=== PATIENT | female | born 1950 | race Caucasian/White ===

== ENCOUNTER 2016-05-31 14:38 | Outpatient (CLI) | payer OTHER | END 2016-05-31 14:39 | disposition home or self-care (01) | DX: R59.0 Localized enlarged lymph nodes (principal) ==

== ENCOUNTER 2017-07-12 09:37 | Outpatient (CLI) | payer OTHER ==
[2017-07-12 17:51] LABS: ALBUMIN 4.4 g/dL (3.2-5.5); ALBUMIN/GLOBULIN RATIO 1.6 (1.0-2.2); BILIRUBIN,TOTAL 0.7 mg/dL (0.2-1.0); CALCIUM 9.4 mg/dL (8.5-10.3); CREATININE 0.8 mg/dL (0.4-1.0); TOTAL PROTEIN 7.1 g/dL (6.7-8.2)
[2017-07-12 18:10] LABS: FREE T4 (FREE THYROXINE) 0.99 ng/dL (0.58-1.64); THYROID STIMULATING HORMONE 1.64 uIU/mL (0.34-5.60)
[2017-07-12 18:14] LABS: FERRITIN 36.3 ng/mL (11.0-306.8); TOTAL T3 1.02 ng/mL (0.87-1.78)
[2017-07-12 18:59] LABS: BASOPHILS % (AUTO) 0.6 %; EOSINOPHILS % (AUTO) 1.1 %; HGB - HEMOGLOBIN 13.5 g/dL (12.0-16.0); LYMPHOCYTES # (AUTO) 0.8 10^3/uL (1.5-3.5); LYMPHOCYTES % (AUTO) 27.2 %; MEAN CORPUSCULAR HEMOGLOBIN 29.6 pg (27.0-31.0); MEAN CORPUSCULAR HGB CONC 33.4 g/dL (32.0-36.0); MEAN CORPUSCULAR VOLUME 88.6 fL (81.0-99.0); MEAN PLATELET VOLUME 10.3 fL (7.9-10.8); MONOCYTES # (AUTO) 0.2 10^3/uL (0.0-1.0); MONOCYTES % (AUTO) 6.3 %; NEUTROPHILS % (AUTO) 64.8 %; PLT - PLATELET COUNT 163 10^3/uL (130-450); RED BLOOD COUNT 4.57 10^6/uL (4.20-5.40); RED CELL DISTRIBUTION WIDTH 13.6 % (12.0-15.0); WHITE BLOOD COUNT 3.1 x10^3/uL (4.8-10.8)
[2017-07-12 19:30] LABS: HB2 TOTAL 14.6 g/dL; HEMOGLOBIN A1C 0.49 g/dL; HEMOGLOBIN A1C % 5.2 % (4.6-6.2)
[2017-07-16 17:32] LABS: T3 REVERSE 15 ng/dL (8-25)
== END 2017-07-12 09:38 | disposition home or self-care (01) ==
LOC: LAB.F 09:37
PROVIDERS: ATTEND Family Medicine
DX: E03.9 Hypothyroidism, unspecified (principal); R53.83 Other fatigue; D64.9 Anemia, unspecified; E55.9 Vitamin D deficiency, unspecified
CPT/HCPCS: 36415; 80053; 82306; 82626; 82728; 83036; 84439; 84443; 84480; 84481; 84482; 85025

== ENCOUNTER 2017-07-18 13:43 | Outpatient (CLI) | payer MEDICARE ==
--- NOTE | 2017-07-19 10:20 | XRAY Report ---
TWO VIEW CHEST: 07/18/2017 CLINICAL INDICATION: Chest pain, worse with inspiration. COMPARISON: 05/31/2016. FINDINGS: Frontal and lateral views of the chest demonstrate a normal cardiac silhouette. The lungs demonstrate minimal biapical fibrosis. No focal infiltrate, effusion, or pneumothorax is seen. IMPRESSION: MINIMAL FIBROTIC CHANGES. NO EVIDENCE OF ACUTE CARDIOPULMONARY DISEASE. TD: 07/19/2017 10:20
== END 2017-07-18 13:44 | disposition home or self-care (01) ==
LOC: DI.S 13:43
PROVIDERS: ATTEND Family Medicine
DX: J84.10 Pulmonary fibrosis, unspecified (principal)
CPT/HCPCS: 71046

== ENCOUNTER 2019-10-01 12:06 | Outpatient (CLI) | payer MEDICARE | END 2019-10-01 12:07 | disposition home or self-care (01) | LOC: LAB.S 12:06 | PROVIDERS: ATTEND Family Medicine | DX: U07.1 COVID-19 (principal) | CPT/HCPCS: 81599 ==

== ENCOUNTER 2019-11-27 14:15 | Outpatient (CLI) | payer MEDICARE | END 2019-11-27 14:16 | disposition home or self-care (01) | LOC: COV 14:15 | PROVIDERS: ATTEND Family Medicine | DX: Z20.828 Contact with and (suspected) exposure to other viral communicable diseases (principal) ==

== ENCOUNTER 2022-04-25 09:34 | Emergency (ER) | payer MEDICARE ==
[2022-04-25 10:06] LABS: BASOPHILS % (AUTO) 0.3 %; EOSINOPHILS % (AUTO) 0.4 %; HCT - HEMATOCRIT 38.9 % (37.0-47.0); HGB - HEMOGLOBIN 12.7 g/dL (12.0-16.0); LYMPHOCYTES # (AUTO) 0.9 10^3/uL (1.5-3.5); LYMPHOCYTES % (AUTO) 9.2 %; MEAN CORPUSCULAR HEMOGLOBIN 29.3 pg (27.0-31.0); MEAN CORPUSCULAR HGB CONC 32.6 g/dL (32.0-36.0); MEAN CORPUSCULAR VOLUME 89.8 fL (81.0-99.0); MEAN PLATELET VOLUME 10.8 fL (7.9-10.8); MONOCYTES # (AUTO) 0.6 10^3/uL (0.0-1.0); MONOCYTES % (AUTO) 6.6 %; NEUTROPHILS # (AUTO) 8.1 10^3/uL (1.5-6.6); NEUTROPHILS % (AUTO) 83.2 %; PLT - PLATELET COUNT 209 10^3/uL (130-450); RED BLOOD COUNT 4.33 10^6/uL (4.20-5.40); RED CELL DISTRIBUTION WIDTH 13.4 % (12.0-15.0); WHITE BLOOD COUNT 9.8 x10^3/uL (4.8-10.8)
[2022-04-25] MEDS ORDERED: DEXAMETHASONE 10 MG/ML VIAL PO STA (10:21)
[2022-04-25] MEDS ORDERED: CHERRY SYRUP 10 ML UDC PO ONE (10:21)
[2022-04-25 10:22] LABS: ALBUMIN 3.7 g/dL (3.2-5.5); BILIRUBIN,TOTAL 1.2 mg/dL (0.2-1.0); CALCIUM 9.1 mg/dL (8.5-10.3); CREATININE 0.9 mg/dL (0.4-1.0); POTASSIUM 3.7 mmol/L (3.5-5.0); TOTAL PROTEIN 7.4 g/dL (6.7-8.2)
--- NOTE | 2022-04-25 10:22 | XRAY Report ---
PROCEDURE: Chest 2 View X-Ray INDICATIONS: Chest Pain TECHNIQUE: 2 views of the chest were acquired. COMPARISON: 07/18/2017 FINDINGS: Surgical changes and devices: None. Lungs and pleura: There is blunting of left costophrenic sulcus laterally. Left lung base opacity obs cures the left cardiac border visualization. Findings are superimposed on mild diffuse articulation. Mediastinum: Mediastinal contours are normal. Heart size is normal. Bones and chest wall: No suspicious bony abnormalities. Soft tissues appear unremarkable. IMPRESSION: 1. Possible lingular opacity and small left lateral pleural effusion. This may be infectious or atele ctasis. 2. Findings superimposed on mild chronic interstitial lung disease. Reviewed by: Fabiola Altamirano MD on 04/25/2022 9:20 AM [facility] Approved by: Fabiola Altamirano MD on 04/25/2022 9:20 AM [facility] Station ID: [id number]
--- NOTE | 2022-04-25 10:26 | ED Physician Documentation ---
PD HPI CHEST PAIN - Stated complaint Stated Complaint: CHEST/SHOULDER/ARM PX - Chief complaint Chief Complaint: Cardiac - History obtained from History obtained from: Patient, Family - History of Present Illness Timing - onset: How many days ago (4) Timing - onset during: Rest Timing - duration: Days (4) Timing - details: Gradual onset, Still present Quality: Sharp, Pain Location: Left shoulder/arm Improved by: Rest Worsened by: Inspiration Associated symptoms: Cough Similar symptoms before: Has not had sx before Recently seen: Clinic - Additional information Additional information: 72-year-old Roro Lopes is an otherwise healthy female who went into see her doctor a week ago and at the time was not ill. The following day she felt ill with aches and pains and subsequently has developed a cough and pain in her left shoulder especially if she takes a deep breath. This morning the pain in her shoulder was bad enough she called her doctor who told her to come to the emergency department for evaluation. Review of Systems Constitutional: reports: Fever, Chills Eyes: denies: Decreased vision, Photophobia Ears: denies: Loss of hearing Nose: denies: Rhinorrhea / runny nose, Congestion Throat: denies: Sore throat Cardiac: reports: Chest pain / pressure. denies: Palpitations, Pedal edema, Calf pain Respiratory: reports: Cough. denies: Dyspnea, Wheezing GI: denies: Abdominal Pain, Nausea, Vomiting, Constipation, Diarrhea : denies: Dysuria, Frequency PD PAST MEDICAL HISTORY - Past Medical History Past Medical History: Yes Cardiovascular: None Respiratory: Pneumonia Neuro: None Endocrine/Autoimmune: None GI: None SCHEDULING REPRESENTATIVE: None : None HEENT: None Psych: None Musculoskeletal: None Derm: None - Present Medications Home Medications: Ambulatory Orders Medication Instructions Recorded Confirmed Ascorbic Acid [Vitamin C] 1,000 mg PO DAILY 04/25/22 04/25/22 Calcium Carb/Mag Ox/Zinc Sulf 1 each PO DAILY 04/25/22 04/25/22 [Khe-Jpy-Svbs 334-134-5 mg Tab] Cefdinir 300 mg PO BID #20 cap 04/25/22 Cholecalciferol (Vitamin D3) 125 mcg PO DAILY 04/25/22 04/25/22 [Vitamin D3 Max] - Allergies Allergies/Adverse Reactions: Allergies Allergy/AdvReac Type Severity Reaction Status Date / Time latex Allergy Rash Verified 04/25/22 09:37 - Social History Does the pt smoke?: No Smoking Status: Never smoker - Immunizations Immunizations are current?: Yes PD ED PE NORMAL - Vitals Vital signs reviewed: Yes (Normal) - General General: Alert and oriented X 3, No acute distress, Well developed/nourished - HEENT HEENT: Atraumatic, PERRL, EOMI - Neck Neck: Supple, no meningeal sign, No bony TTP - Cardiac Cardiac: RRR, No murmur - Respiratory Respiratory: No respiratory distress, Other (Fine crackles to the mid left lung ) - Abdomen Abdomen: Soft, Non tender - Back Back: No CVA TTP, No spinal TTP - Derm Derm: Normal color, Warm and dry, No rash - Extremities Extremities: No deformity, No edema - Neuro Neuro: Alert and oriented X 3, 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, No motor deficit, No sensory deficit, Normal speech Eye Opening: Spontaneous Motor: Obeys Commands Verbal: Oriented GCS Score: 15 - Psych Psych: Normal mood, Normal affect Results - Vitals Vitals: Vital Signs - 24 hr 04/25/22 04/25/22 09:37 10:11 Temperature 37.2 C Heart Rate 88 87 Respiratory 18 24 Rate Blood Pressure 128/75 125/64 O2 Saturation 98 100 Oxygen O2 Source Room air - EKG (time done) 0947 Rate: Rate (enter#) (85) Rhythm: NSR [place]: LAD (borderline) Compare to prior EKG: Old EKG unavailable Computer interpretation: Agree with computer - Labs Labs: Laboratory Tests 04/25/22 04/25/22 04/25/22 09:52 09:52 09:52 WBC 9.8 RBC 4.33 Hgb 12.7 Hct 38.9 MCV 89.8 MCH 29.3 MCHC 32.6 RDW 13.4 Plt Count 209 MPV 10.8 Neut # (Auto) 8.1 H Lymph # (Auto) 0.9 L [place] # (Auto) 0.6 Eos # (Auto) 0.0 Baso # (Auto) 0.0 Absolute Nucleated RBC 0.00 Nucleated RBC % 0.0 D-Dimer Sodium 134 L Potassium 3.7 Chloride 98 L Carbon Dioxide 27 Anion Gap 9.0 BUN 15 Creatinine 0.9 Estimated GFR (MDRD) 62 L Glucose 116 H Calcium 9.1 Total Bilirubin 1.2 H AST 48 H ALT 44 Alkaline Phosphatase 72 Troponin I High Sens 4.5 Total Protein 7.4 Albumin 3.7 Globulin 3.7 Albumin/Globulin Ratio 1.0 Lipase 29 Nasal Adenovirus (PCR) Nasal B. parapertussis DNA (PCR) Nasal Coronavir 229E PCR Nasal Coronavir HKU1 PCR Nasal Coronavir NL63 PCR Nasal Coronavir OC43 PCR Nasal Enterovir/Rhinovir PCR Nasal Influenza B PCR Nasal Influenza A PCR Nasal Parainfluen 1 PCR Nasal Parainfluen 2 PCR Nasal Parainfluen 3 PCR Nasal Parainfluen 4 PCR Nasal RSV (PCR) Nasal B.pertussis DNA PCR Nasal C.pneumoniae (PCR) Moises Human Metapneumo PCR Nasal M.pneumoniae (PCR) Nasal SARS-CoV-2 (PCR) 04/25/22 04/25/22 09:52 10:05 WBC RBC Hgb Hct MCV MCH MCHC RDW Plt Count MPV Neut # (Auto) Lymph # (Auto) [place] # (Auto) Eos # (Auto) Baso # (Auto) Absolute Nucleated RBC Nucleated RBC % D-Dimer 279.4 H Sodium Potassium Chloride Carbon Dioxide Anion Gap BUN Creatinine Estimated GFR (MDRD) Glucose Calcium Total Bilirubin AST ALT Alkaline Phosphatase Troponin I High Sens Total Protein Albumin Globulin Albumin/Globulin Ratio Lipase Nasal Adenovirus (PCR) NOT DETECTED Nasal B. parapertussis DNA (PCR) NOT DETECTED Nasal Coronavir 229E PCR NOT DETECTED Nasal Coronavir HKU1 PCR NOT DETECTED Nasal Coronavir NL63 PCR NOT DETECTED Nasal Coronavir OC43 PCR NOT DETECTED Nasal Enterovir/Rhinovir PCR NOT DETECTED Nasal Influenza B PCR NOT DETECTED Nasal Influenza A PCR NOT DETECTED Nasal Parainfluen 1 PCR NOT DETECTED Nasal Parainfluen 2 PCR NOT DETECTED Nasal Parainfluen 3 PCR NOT DETECTED Nasal Parainfluen 4 PCR NOT DETECTED Nasal RSV (PCR) NOT DETECTED Nasal B.pertussis DNA PCR NOT DETECTED Nasal C.pneumoniae (PCR) NOT DETECTED Moises Human Metapneumo PCR NOT DETECTED Nasal M.pneumoniae (PCR) NOT DETECTED Nasal SARS-CoV-2 (PCR) NOT DETECTED - Rads (name of study) chest Radiology: Prelim report reviewed (Impression: 1. Possible lingular opacity and small left lateral pleural effusion. This may be infectious or atelectasis. Findings superimposed on chronic mild chronic interstitial lung disease.), EMP read indepedently chest CTA Radiology: Prelim report reviewed (Impression: 1. No pulmonary embolus. Consolidation in the lingula with trace effusion suggestive of pneumonia. Chronic appearing bilateral upper lobe pleural plaquing.), EMP read indepedently PD Medical Decision Making - ED course Complexity details: reviewed old records, reviewed results, re-evaluated patient, considered differential, d/w patient, d/w family ED course: 72 y/o female with prior history of pneumonia with pleuritic left shoulder pain, cough and fever appears to have an infiltrate with effusion on the left to account for symptoms. She has left sided pleuritic chest pain and an elevated d- dimer. The differential includes PE, cancer, pneumonia and of course all potential causes of chest pain. I favor pneumonia but found the elevated d-dimer a reason to perform further testing and a pulmonary angiogram is undertaken. The scan is reassuring and indicates a likely etiology of pneumonia. The patient has had a trip to see her primary care doctor after her last visit for pneumonia in 2011. She went to see the primary for a rash and she recall she had this the day after she is was seen in the emergency department. She was treated at that time with Rocephin and azithromycin. Unclear which she had a reaction to but I would be concerned about the Rocephin. I have elected to treat the patient with cefdinir as a single agent. She is going to [place] and I felt addition of doxycycline might interfere with sun exposure. Departure - Departure Disposition: 01 Home, Self Care Clinical Impression: Pneumonia Qualifiers: Pneumonia type: due to unspecified organism Laterality: left Lung location: lower lobe of lung Qualified Code(s): J18.9 - Pneumonia, unspecified organism Condition: Stable Instructions: ED Pneumonia Adult Follow-Up: Gayathri Barros MD [Primary Care Provider] - Prescriptions: Cefdinir 300 mg PO BID #20 cap Comments: Roro today looks like you have pneumonia in the left base of your lung and your CAT scan is confirmed that this looks like just pneumonia nothing else. My recommendation is to fill the prescription for the cefdinir and begin taking it today. You were given a dose of dexamethasone today and this should help with your pain in the shoulder and with your general symptoms.I have E scribed the cefdinir to [facility] in [place].
[2022-04-25] MEDS ORDERED: iohexoL-300 100 ML VIAL ONE (10:38)
[2022-04-25] MEDS ORDERED: iohexoL-300 100 ML VIAL IVP ONE (11:01)
[2022-04-25 11:13] LABS: B. PARAPERTUSSIS- RESP PCR PAN NOT DETECTED; B. PERTUSSIS- RESP PCR PANEL NOT DETECTED; C. PNEUMONIAE- RESP PCR PANEL NOT DETECTED; CORONAVIRUS 229E-RESP PCR NOT DETECTED; CORONAVIRUS HKU1-RESP PCR NOT DETECTED; CORONAVIRUS NL63-RESP PCR NOT DETECTED; CORONAVIRUS OC43-RESP PCR NOT DETECTED; HUMAN METAPNEUMOVIRUS NOT DETECTED; INFLUENZA A- RESP PCR PANEL NOT DETECTED; INFLUENZA B - RESP PCR PANEL NOT DETECTED; M. PNEUMONIAE- RESP PCR PANEL NOT DETECTED; PARAINFLUENZA VIRUS 1 NOT DETECTED; PARAINFLUENZA VIRUS 2 NOT DETECTED; PARAINFLUENZA VIRUS 3 NOT DETECTED; PARAINFLUENZA VIRUS 4 NOT DETECTED; RHINOVIRUS/ENTEROVIRUS NOT DETECTED; RSV- RESP PCR PANEL NOT DETECTED; SARS-CoV-2 -RESP PCR PANEL NOT DETECTED
--- NOTE | 2022-04-25 11:45 | CT Report ---
PROCEDURE: ANGIO CHEST W/WO INDICATIONS: L chest pain elevated d-dimer CONTRAST: 80ml omni 300 TECHNIQUE: After the administration of intravenous contrast, 2 mm axial images were acquired from the pulmonary apices to the posterior costophrenic angles during the arterial phase. In addition, 1 mm lung kernel and 5 mm soft tissue kernel reconstructions were performed. 3-dimensional coronal oblique maximum int ensity projection (MIP) reformats, 8 mm axial MIP, and 5 mm coronal and sagittal MPR reformats were t hen performed through the thorax. For radiation dose reduction, the following was used: automated exp osure control, adjustment of mA and/or kV according to patient size. COMPARISON: None. Correlation made to chest x-ray performed the same day. FINDINGS: Image quality: Excellent. Pulmonary arteries: Pulmonary arteries are normal in size, and demonstrate no intraluminal filling d efects to suggest central pulmonary embolism. Lungs and pleura: There is a consolidation with adjacent groundglass opacity involving the lower ling roe. Mild atelectatic change present at the left posterior costophrenic sulcus. Trace left pleural ef fusion. Bilateral apical and upper lobe lateral irregular pleural plaquing. Central and peripheral ai rways are patent. Mediastinum: Heart size is normal, without pericardial effusion. No mediastinal or hilar adenopathy . Thoracic aorta is normal in caliber and enhancement. Esophagus is normal in caliber, without hiat al hernia. Bones and chest wall: No suspicious bony lesions. Ribs and thoracic spine appear intact throughout. No axillary or supraclavicular adenopathy. The thyroid is normal in size and there are no incident al findings. Abdomen: Visualized upper abdominal solid organs appear normal in the early arterial phase of enhanc ement. IMPRESSION: 1. No pulmonary embolus. 2. Consolidation in the lingula with trace effusion suggestive of pneumonia. 3. Chronic appearing bilateral upper lobe pleural plaquing. Reviewed by: Fabiola Altamirano MD on 04/25/2022 10:43 AM [facility] Approved by: Fabiola Altamirano MD on 04/25/2022 10:43 AM [facility] Station ID: [id number]
[2022-04-25 11:59] VITALS: BP 104/67
== END 2022-04-25 12:06 | disposition home or self-care (01) ==
LOC: ED 09:34
DX: J18.9 Pneumonia, unspecified organism (principal); Z20.822 Contact with and (suspected) exposure to COVID-19
CPT/HCPCS: 36415; 71046; 71275; 80053; 83690; 84484; 85025; 85379; 87633; 93005; 99284; A9270; Q9967

== ENCOUNTER 2022-05-10 07:37 | Outpatient (CLI) | payer MEDICARE ==
[2022-05-10 14:16] LABS: EOSINOPHILS # (AUTO) 0.1 10^3/uL (0.0-0.7); EOSINOPHILS % (AUTO) 1.7 %; HCT - HEMATOCRIT 39.7 % (37.0-47.0); HGB - HEMOGLOBIN 12.2 g/dL (12.0-16.0); LYMPHOCYTES # (AUTO) 0.9 10^3/uL (1.5-3.5); MEAN CORPUSCULAR HEMOGLOBIN 28.6 pg (27.0-31.0); MEAN CORPUSCULAR HGB CONC 30.7 g/dL (32.0-36.0); MEAN CORPUSCULAR VOLUME 93.2 fL (81.0-99.0); MEAN PLATELET VOLUME 11.1 fL (7.9-10.8); MONOCYTES # (AUTO) 0.2 10^3/uL (0.0-1.0); MONOCYTES % (AUTO) 7.3 %; NEUTROPHILS # (AUTO) 1.8 10^3/uL (1.5-6.6); PLT - PLATELET COUNT 308 10^3/uL (130-450); RED BLOOD COUNT 4.26 10^6/uL (4.20-5.40); RED CELL DISTRIBUTION WIDTH 14.3 % (12.0-15.0)
[2022-05-10 15:55] LABS: ALBUMIN 3.6 g/dL (3.2-5.5); ALKALINE PHOSPHATASE 54 IU/L (42-121); ALT ALANINE AMINOTRANSFERASE 23 IU/L (10-60); AST ASPARTATE AMINOTRANSFERASE 26 IU/L (10-42); BILIRUBIN,TOTAL 0.8 mg/dL (0.2-1.0); BUN - BLOOD UREA NITROGEN 17 mg/dL (6-20); CALCIUM 9.9 mg/dL (8.5-10.3); CARBON DIOXIDE - CO2 30 mmol/L (21-32); CHLORIDE 102 mmol/L (101-111); CHOL/HDL RATIO 2.4 (<4.4); CHOLESTEROL 184 mg/dL; CREATININE 0.8 mg/dL (0.4-1.0); CRP HIGH SENSITIVITY 1.9 mg/L; GFR - MDRD 71 (>89); GLUCOSE 84 mg/dL (70-100); HDL CHOLESTEROL 77 mg/dL; LDL CHOLESTEROL,CALCULATED 96 mg/dL; LDL/HDL RATIO 1.2 (<4.4); POTASSIUM 4.2 mmol/L (3.5-5.0); SODIUM 139 mmol/L (135-145); THYROID STIMULATING HORMONE 1.42 uIU/mL (0.34-5.60); TOTAL PROTEIN 7.2 g/dL (6.7-8.2); TRIGLYCERIDES 57 mg/dL; VLDL CHOLESTEROL 11 mg/dL
[2022-05-10 15:57] LABS: FREE T3 2.7 pg/mL (2.5-3.9); FREE T4 (FREE THYROXINE) 0.89 ng/dL (0.58-1.64)
[2022-05-10 16:02] LABS: FERRITIN 76.4 ng/mL (11.0-306.8)
[2022-05-10 20:29] LABS: ESTIMATED AVERAGE GLUCOSE 114 mg/dL (70-100); HEMOGLOBIN A1c% 5.6 % (4.27-6.07)
[2022-05-11 06:10] LABS: VITAMIN D 25-HYDROXY 89.5 ng/mL (30.0-100.0)
== END 2022-05-10 07:38 | disposition home or self-care (01) ==
LOC: LAB.S 07:37
PROVIDERS: ATTEND Family Medicine
DX: E03.9 Hypothyroidism, unspecified (principal); E78.5 Hyperlipidemia, unspecified; R53.83 Other fatigue; R73.09 Other abnormal glucose; N95.1 Menopausal and female climacteric states; E55.9 Vitamin D deficiency, unspecified
CPT/HCPCS: 36415; 80053; 80061; 82306; 82626; 82728; 83036; 83090; 83721; 84439; 84443; 84480; 84481; 84482; 85025; 86141

== ENCOUNTER 2022-05-29 13:36 | Outpatient (CLI) | payer MEDICARE ==
--- NOTE | 2022-05-29 18:52 | DEXA Report ---
PROCEDURE: Dexa Spine and/or Hip INDICATIONS: POST MENOPAUSAL TECHNIQUE: Dual energy x-ray absorptiometry (DXA) was performed on a Plisten System. Regions measur ed are the AP Spine, femoral neck, and if needed forearm. COMPARISON: None. FINDINGS: Lumbar Spine: Bone Mineral Density 0.829 g/cm/cm,T score -2.9, osteoporosis Left Femoral Neck: Bone Mineral Density 0.622 g/cm/cm, T score -2.7, osteoporosis Left Hip: Bone Mineral Density 0.722 g/cm/cm,T score -2.4, osteopenia (T score greater or equal to -1.0: NORMAL) (T score from -1.1 to -2.4: OSTEOPENIA) (T score less than or equal to -2.5 to: OSTEOPOROSIS) Impression: Osteoporosis Patients with diagnosis of osteoporosis or osteopenia should have regular bone mineral density assess ment. For those eligible for Medicare, routine testing is allowed once every 2 years. Testing frequ ency can be increased for patients who have rapidly progressing disease or for those who are receivin g medical therapy to restore bone mass. Reviewed by: Tunde Luque MD on 05/29/2022 5:51 PM [facility] Approved by: Tunde Luque MD on 05/29/2022 5:51 PM [facility] Station ID: [id number]
== END 2022-05-29 13:37 | disposition home or self-care (01) ==
LOC: DI 13:36
PROVIDERS: ATTEND Family Medicine
DX: M81.0 Age-related osteoporosis without current pathological fracture (principal); Z78.0 Asymptomatic menopausal state

== ENCOUNTER 2022-05-29 13:37 | Outpatient (CLI) | payer MEDICARE ==
--- NOTE | 2022-05-31 12:28 | Mammography Report ---
BILATERAL DIGITAL SCREENING MAMMOGRAM 3D/2D: 05/29/2022 CLINICAL: Routine screening. Family history of breast cancer. Comparison is made to exams dated: 07/21/2020 mammogram, 06/07/2016 mammogram, and 03/03/2013 mammogram - [facility]. Both breasts are extremely dense, which lowers the sensitivity of mammography (category d />75% gland ular tissue). No significant masses, calcifications, or other findings are seen in either breast. There has been no significant interval change. IMPRESSION: NEGATIVE There is no mammographic evidence of malignancy. A 1 year screening mammogram is recommended. This exam was interpreted at Station ID: [id number]. NOTE: For mammograms, a report in lay terms will be sent to the patient. Approximately 15% of breast malignancies will not be visualized mammographically. In the management of a palpable breast mass, a negative mammogram must not discourage biopsy of a clinically suspicious lesion. Electronically Signed By: Roger Messer M.D. [facility]:05/30/2022 10:56:16 letter sent: No_Letter ACR BI-RADS Category 1: Negative [id number] PARENCHYMAL PATTERN: (VD) - The breast(s) demonstrate(s) extremely dense parenchyma, limiting the sen sitivity of mammography. BI-RADS CATEGORY: (1) - 1 RECOMMENDATION: (ANNUAL) - Recommend routine annual screening mammography. [id number] 1 year screening LATERALITY: (B)
== END 2022-05-29 13:38 | disposition home or self-care (01) ==
LOC: DI 13:37
PROVIDERS: ATTEND Family Medicine
DX: Z12.31 Encounter for screening mammogram for malignant neoplasm of breast (principal); Z80.3 Family history of malignant neoplasm of breast

== ENCOUNTER 2023-10-17 11:27 | Outpatient (CLI) | payer MEDICARE ==
--- NOTE | 2023-10-17 11:46 | XRAY Report ---
PROCEDURE: Cervical Spine 2-3V INDICATIONS: NECK PAIN TECHNIQUE: 3 view(s) of the cervical spine were acquired. COMPARISON: None. FINDINGS: Bones: No fractures or dislocations to the T1 level. The lateral masses of C1 appear intact on the odontoid view. No suspicious bony lesions. Grade 1 anterolisthesis of C7 on T1, presumably due to f acet arthrosis. Moderate disc height loss at C4-5, C5-6, C6-7. Mild disc height loss at remaining lev els. Diffuse facet arthrosis. Soft tissues: No prevertebral soft tissue swelling. Right apical scarring. IMPRESSION: Mild to moderate, multilevel degenerative disc disease and diffuse facet arthrosis. Reviewed by: Kristian Jimenes MD on 10/17/2023 10:45 AM [facility] Approved by: Kristian Jimenes MD on 10/17/2023 10:45 AM [facility] Station ID: [id number]
== END 2023-10-17 11:28 | disposition home or self-care (01) ==
LOC: DI.S 11:27
PROVIDERS: ATTEND Family Medicine
DX: M50.321 Other cervical disc degeneration at C4-C5 level (principal); M47.812 Spondylosis without myelopathy or radiculopathy, cervical region

== ENCOUNTER 2023-11-09 07:00 | Outpatient (CLI) | payer MEDICARE ==
--- NOTE | 2023-11-09 12:11 | XRAY Report ---
PROCEDURE: Chest 2V INDICATIONS: COUGH TECHNIQUE: 2 views of the chest were acquired. COMPARISON: Thoracic spine plain films that include the area of current clinical concern. FINDINGS: Surgical changes and devices: None. Lungs and pleura: No pleural effusions or pneumothorax. Lungs are abnormal with pulmonary hyperexpa nsion or normal variant large lung volumes and there is a definite medial segment right middle lobe p neumonia present on both the frontal and lateral views.. Mediastinum: Mediastinal contours appear normal. Heart size is normal. Bones and chest wall: No suspicious bony lesions. Overlying soft tissues appear unremarkable. IMPRESSION: Medial segment right middle lobe pneumonia. This lesion is located anteriorly on the lateral view. Reviewed by: Junito Huitron MD on 11/09/2023 12:10 PM PDT Approved by: Junito Huitron MD on 11/09/2023 12:10 PM PDT Station ID: [id number]
== END 2023-11-09 23:59 | disposition home or self-care (01) ==
LOC: DI.S 07:00
PROVIDERS: ATTEND Emergency Medicine
DX: J18.9 Pneumonia, unspecified organism (principal)